=== PATIENT | male | born 1965 | race Caucasian/White ===

== ENCOUNTER 2020-04-19 15:33 | Outpatient (CLI) | payer BC, SELFPAY ==
--- NOTE | 2020-04-19 14:30 | DI.RAD_ITS ---
EXAM: XR SHOULDER RT COMPLETE 2+V CLINICAL HISTORY: R shoulder injury. TECHNIQUE: 2D digital imaging was performed. COMPARISON: No exams were available for comparison FINDINGS: There is no evidence of acute fracture or dislocation. However, there is a 5 x 1.5 millimeter calcif ic density seen adjacent to the anterior cortex of the proximal diaphysis of the humerus, seen on the axial view. Possibly significant. Possibly related to the biceps tendon. There does not appear to be an ominous osseous lesion at this level. No calcifications in the subacromial space. Mild degen erative changes in the AC joint. IMPRESSION: DATA REPOSITORY: RADIATION DOSE DELIVERED:
== END 2020-04-19 15:53 ==
PROVIDERS: Visit Provider Physician Assistant
DX: M19.011 Primary osteoarthritis, right shoulder (principal); S49.81XA Other specified injuries of right shoulder and upper arm, initial encounter
CPT/HCPCS: 73030